=== PATIENT | male | born 1950 | race Hispanic/Latino ===

== ENCOUNTER 2024-01-11 13:19 | Inpatient (IN) | payer OTHER ==
[2024-01-11 14:05] LABS: #Basophils 0.03 10x3/uL (0.0-0.2); %Basophils 0.2 % (0.0-1.0); %Eosinophils 0.3 % (0.0-10.0); %Lymphocytes 3.1 % (21.0-51.0); %Monocytes 5.4 % (0.0-10.0); %Neutrophils 90.4 % (42.0-75.0); Hematocrit 40.4 % (42.0-52.0); Hemoglobin 13.4 g/dL (14.0-18.0); Mean Corpuscular HGB CONC 33.2 g/dL (32.0-36.0); Mean Corpuscular Hemoglobin 31.2 pg (27.0-31.0); Mean Corpuscular Volume 94.2 fL (78.0-98.0); Mean Platelet Volume 10.5 fL (7.4-10.4); Platelet Count 153 10x3/uL (130-400); RBC Distribution Width 13.4 % (11.5-14.5); Red Blood Cell (RBC) Count 4.29 mill/uL (4.70-6.10)
[2024-01-11 14:24] LABS: ALT (SGPT) 20 U/L (8-55); AST (SGOT) 26 U/L (5-34); Albumin 3.6 g/dL (3.4-4.8); Alkaline Phosphatase 83 U/L (40-110); Anion Gap 18 mmol/L (10-20); BUN (Urea Nitrogen) 20 mg/dL (8.4-25.7); Calc. Creatinine Clearance 0 mL/min (70-130); Calcium 9.7 mg/dL (7.8-10.44); Carbon Dioxide 19 mmol/L (23-31); Chloride 102 mmol/L (98-107); Estimated GFR 90; Globulin 3.4 g/dL (2.4-3.5); Glucose 219 mg/dL (83-110); Potassium 3.8 mmol/L (3.5-5.1); Sodium 135 mmol/L (136-145)
[2024-01-11] MEDS ORDERED: Cefepime 2 GM VIAL ONE (16:19)
[2024-01-11] MEDS ORDERED: Sodium Chloride 0.9% 100 ML ONE (16:20)
[2024-01-11] MEDS ORDERED: Ondansetron PF 4 MG/2 ML Vial IVP PRN (17:00)
[2024-01-11] MEDS ORDERED: Ondansetron ODT 4 MG TAB SL PRN (17:00)
[2024-01-11] MEDS ORDERED: Acetaminophen 325 MG TAB PO PRN (17:00)
[2024-01-11] MEDS ORDERED: Acetaminophen 500 MG TAB ONE (17:05)
[2024-01-11] MEDS ORDERED: Dextrose 50% Abboject 50 ML SYRINGE SLOW IVP PRN (17:20)
[2024-01-11] MEDS ORDERED: Dextrose 5% in Water 1,000 ML IV PRN (17:20)
[2024-01-11] MEDS ORDERED: Glucagon 1 MG/ML KIT IM PRN (17:20)
[2024-01-11] MEDS ORDERED: Insulin Regular, Human 100 UNIT/ML 10 ML VIAL SC PRN ×2 (17:20)
[2024-01-11] MEDS ORDERED: Melatonin 3 MG TAB PO PRN (17:21)
[2024-01-11 18:03] VITALS: BMI 28.3
[2024-01-11] MEDS: Vancomycin (BATCH) 2 GM in Premix 1 BAG IVPB ONE (18:03)
[2024-01-11] MEDS: CEFAZOLIN 1 GM in Sodium Chloride 0.9% 100 ML IVPB SCH (21:43)
[2024-01-12 05:59] LABS: #Basophils Less than 0.03 10x3/uL (0.0-0.2); %Basophils 0.2 % (0.0-1.0); %Eosinophils 0.6 % (0.0-10.0); %Lymphocytes 6.2 % (21.0-51.0); %Monocytes 7.3 % (0.0-10.0); Hematocrit 35.8 % (42.0-52.0); Hemoglobin 11.8 g/dL (14.0-18.0); Mean Corpuscular Hemoglobin 31.1 pg (27.0-31.0); Mean Corpuscular Volume 94.2 fL (78.0-98.0); Mean Platelet Volume 10.7 fL (7.4-10.4); Platelet Count 134 10x3/uL (130-400); RBC Distribution Width 13.5 % (11.5-14.5)
[2024-01-12 06:39] LABS: Anion Gap 18 mmol/L (10-20); BUN (Urea Nitrogen) 15 mg/dL (8.4-25.7); Calc. Creatinine Clearance 99 mL/min (70-130); Calcium 8.4 mg/dL (7.8-10.44); Carbon Dioxide 16 mmol/L (23-31); Chloride 108 mmol/L (98-107); Estimated GFR 97; Glucose 125 mg/dL (83-110); Potassium 3.6 mmol/L (3.5-5.1); Sodium 138 mmol/L (136-145)
[2024-01-12] MEDS: Aspirin 81 mg Enteric Coated Tablet PO SCH (08:18)
[2024-01-12] MEDS: Clopidogrel Bisulfate 75 MG TAB PO SCH (08:18)
[2024-01-12] MEDS: Ezetimibe 10 MG TAB PO SCH (08:18)
[2024-01-12] MEDS: Enoxaparin 40 MG (0.4 mL) SYRINGE SC SCH (08:19)
[2024-01-12] MEDS: metFORMIN 500 MG TAB PO SCH (17:04)
[2024-01-12] MEDS: Polyethylene Glycol 3350 17 GM Packet PO PRN (17:20)
[2024-01-12 20:18] VITALS: BP 120/69; TEMP 98.4
[2024-01-12] MEDS: Senokot S 8.6-50 MG TAB PO SCH (20:57)
[2024-01-12] MEDS: Atorvastatin Calcium 40 MG TAB PO SCH (20:58)
[2024-01-12] MEDS: Empagliflozin 25 MG TAB PO SCH (20:58)
[2024-01-12] MEDS ORDERED: Empagliflozin/Metformin Hcl [Synjardy 12.5-1,000 Mg Tablet] PO SCH (21:00)
[2024-01-12] MEDS ORDERED: Non-Formulary Item 1 EACH (Atorvastatin Calcium [Lipitor] 80 MG Tablet) PO SCH (21:00)
[2024-01-13] MEDS ORDERED: Ezetimibe 10 MG TAB PO SCH (09:00)
[2024-01-13] MEDS ORDERED: Mirabegron ER 25 MG ER.TAB PO SCH (09:00)
[2024-01-13] MEDS ORDERED: Finasteride 5 MG TAB PO SCH (09:00)
[2024-01-14] MEDS ORDERED: FLU (Fluad Triv) TS24-25 (65UP)/MF59C/PF 45 MCG/0.5 ML Syringe IM ONE (09:00)
== END 2024-01-14 12:37 | disposition home or self-care (01) | DRG 872 ==
LOC: ERS 13:19 → T4-B 17:18
PROVIDERS: ADMIT Internal Medicine; ATTEND Hospitalist
DX: A41.9 Sepsis, unspecified organism (principal); L03.115 Cellulitis of right lower limb; E11.9 Type 2 diabetes mellitus without complications; I25.10 Atherosclerotic heart disease of native coronary artery without angina pectoris; I10 Essential (primary) hypertension; E78.5 Hyperlipidemia, unspecified; N40.0 Benign prostatic hyperplasia without lower urinary tract symptoms; R65.20 Severe sepsis without septic shock; Z95.1 Presence of aortocoronary bypass graft
CPT/HCPCS: 36415; 36416; 80048; 80053; 83605; 85025; 87040; 96365; 96375; J0690; J0692; J1650; J3370